=== PATIENT | female | born 1955 | race Caucasian/White ===

== ENCOUNTER 2017-08-05 10:01 | Outpatient (CLI) | payer OTHER ==
[2017-08-05 10:44] LABS: eGFR (Non-African) > 60
[2017-08-05 10:50] LABS: MEAN CORPUSCULAR HEMOGLOBIN 31.6 pg (28.0-34.0); MEAN CORPUSCULAR VOLUME 96.3 fl (80.0-100.0)
== END 2017-08-05 10:03 ==
LOC: LAB 10:01
PROVIDERS: ATTEND Family Medicine
DX: Z00.00 Encounter for general adult medical examination without abnormal findings (principal)
CPT/HCPCS: 36415; 80053; 80061; 84443; 85027

== ENCOUNTER 2017-08-18 10:31 | Day surgery (SDC) | payer OTHER ==
--- NOTE | 2017-08-18 14:30 | GI Report ---
REFERRING PHYSICIAN: Dr. Melissa Hinojosa [employer] PROJECT MANAGER: Juve Mejia MD PROCEDURE MEDICATION: Propofol as per anesthesia. INDICATIONS: Patient is a 62-year-old woman. She did have a tubulovillous polyp removed in the sigmoid 5 years ago. 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 She states her stools are regular. She stopped taking the Senna laxatives. She is trying to get more fiber in her diet. She is referred for the above indications and follow up. PROCEDURE PERFORMED: Colonoscopy and polypectomy. PROCEDURE: An Olympus video colonoscope was advanced to the rectum and slowly advanced to the cecum. Right near the appendiceal orifice, the patient had like a 3 to 4 mm flat polyp removed with a cold snare. Terminal ileum looks normal. On slow withdrawal, the remaining part of the cecum, ascending colon, and transverse colon with no obvious intraluminal lesions noted. I no longer see melanosis coli. The descending colon and sigmoid with some redundancy. No obvious intraluminal lesions were noted. Retroflexion of the rectum was normal. Patient tolerated the procedure well. FINDINGS: 1. A small cecal polyp that was cold snare removed. 2. Melanosis coli has resolved. RECOMMENDATIONS: 1. A high-fiber diet. 2. She can take MiraLAX if need be. 3. Follow up colon in 5 years pending the pathology. cc: Dr. Melissa ARCINIEGA
== END 2017-08-18 10:32 ==
LOC: OPSURG 10:31
PROVIDERS: ATTEND Internal Medicine Gastroenterology
DX: K63.5 Polyp of colon (principal); D12.0 Benign neoplasm of cecum
CPT/HCPCS: J2001; J2704; J7120; 45385; S1016